=== PATIENT | male | born 1975 | race Caucasian/White ===

== ENCOUNTER 2019-04-08 06:57 | Outpatient (CLI) | payer MEDICAID ==
[~2019-04-08] VITALS: Ht 172.7 cm; Wt 76.2 kg
[~2019-04-08 06:57] MED LIST: CEPHALEXIN500 M1 PO; LORTAB 5/500 501 TAB PO; NO HOME MEDICATIONS
[2019-04-08 07:59] VITALS: BP 95/66; PULSE 75; TEMP 97.4
[2019-04-08] MEDS ORDERED: AMITRIPTYLINE H25 M1 PO (08:08)
[2019-04-08] MEDS ORDERED: TYLENOL 325MG325 MG PO (08:09)
[2019-04-08] MEDS ORDERED: ULTRAM 50MG TAB50 MG PO (08:09)
[2019-04-12 03:11] LABS: ADRENOCORTICOTROPIC HORMONE 13 pg/mL (5-27)
== END 2019-04-08 09:08 | disposition home or self-care (01) ==
LOC: EUO 06:57
PROVIDERS: Internal Medicine Interventional Cardiology
DX: R55 Syncope and collapse (principal)
CPT/HCPCS: J0834